=== PATIENT | male | born 1960 | race Caucasian/White ===

== ENCOUNTER 2017-03-10 19:12 | Emergency (ER) | payer BC ==
[2017-03-10 19:29] VITALS: BMI 28.2
[2017-03-10 19:33] VITALS: TEMP 97.9; O2SAT 98
[2017-03-10] MEDS ORDERED: TDAP Vaccine 0.5 mL Syr IM ONE (19:52)
[2017-03-10] MEDS ORDERED: Amoxicillin-Clav 875-125 mg Tab PO STA (19:52)
--- NOTE | 2017-03-10 19:54 | ED PDOC ---
Arrival/HPI <Thomas Gonzalez - Last Filed: 03/10/17 20:19> - General Historian: Patient - History of Present Illness Time/Duration: Prior to Arrival Symptom Onset: Sudden Symptom Course: Unchanged Quality: Aching Severity Level: 1 <Ewelina Upton - Last Filed: 03/11/17 14:27> - General Chief Complaint: Abnormal Skin Integrity Time Seen by Provider: 03/10/17 19:39 - History of Present Illness Narrative History of Present Illness (Text): 03/10/17 19:51 56-year-old male presents today with a laceration to the right cheek. Patient states he was opening a cabinet with glass doors and the glass broke and a piece of glass hit into his cheek. Patient states he removed a large piece of glass from his right cheek. Patient complaining of minimal pain. Patient unsure of his last tetanus shot. Incident occurred prior to arrival. No medications have been taken at home. Patient denies foreign body sensation. (Ewelina Upton) Past Medical History - Provider Review Nursing Documentation Reviewed: Yes - Travel History Have you recently traveled outside [place] w/in the past 3 mons?: No - Infectious Disease Hx of Infectious Diseases: None - Tetanus Immunization Tetanus Immunization: Unknown - Psychiatric Hx Substance Use: No - Anesthesia Hx Anesthesia: No <Ewelina Upton - Last Filed: 03/11/17 14:27> Family/Social History - Physician Review Nursing Documentation Reviewed: Yes Family/Social History: Unknown Family HX Smoking Status: Never Smoked Hx Alcohol Use: Yes Frequency of alcohol use: Socially Hx Substance Use: No <Ewelina Upton - Last Filed: 03/11/17 14:27> Allergies/Home Meds <Thomas Gonzalez - Last Filed: 03/10/17 20:19> <Ewelina Upton - Last Filed: 03/11/17 14:27> Allergies/Adverse Reactions: Allergies No Known Allergies Allergy (Verified 03/10/17 19:29) Home Medications: Home Meds Medication Instructions Recorded Confirmed Aspirin [Adult Low Dose Aspirin EC] 1 tab PO DAILY 03/10/17 03/10/17 Review of Systems - Review of Systems Constitutional: absent: Fatigue, Fevers ENT: absent: Sore Throat, Sinus Congestion Respiratory: absent: SOB, Cough Cardiovascular: absent: Chest Pain Gastrointestinal: absent: Abdominal Pain, Vomiting Musculoskeletal: absent: Arthralgias, Back Pain, Neck Pain Skin: Laceration Neurological: absent: Headache, Dizziness <Ewelina Upton - Last Filed: 03/11/17 14:27> Physical Exam Vital Signs Reviewed: Yes Temperature: Afebrile Blood Pressure: Hypertensive Pulse: Regular Respiratory Rate: Normal Appearance: Positive for: Well-Appearing, Non-Toxic, Comfortable Pain Distress: None Mental Status: Positive for: Alert and Oriented X 3 - Systems Exam Head: Present: Laceration (there is a 2cm linear laceration to right cheek. no active bleeding. no palpable or visualized FB. ) Mouth: Present: Moist Mucous Membranes, Normal Tounge, Normal Teeth, Other ( there is a small puncture wound noted to the mucosa of the right cheek.). No: Drooling, Trismus Nose (External): Present: Atraumatic Neck: Present: Normal Range of Motion Respiratory/Chest: Present: Clear to Auscultation, Good Air Exchange. No: Respiratory Distress, Accessory Muscle Use Cardiovascular: Present: Regular Rate and Rhythm, Normal S1, S2. No: Murmurs Neurological: Present: GCS=15 Skin: Present: Warm, Dry Psychiatric: Present: Alert, Oriented x 3 <Ewelina Upton - Last Filed: 03/11/17 14:27> Vital Signs Temp Pulse Resp BP Pulse Ox 03/10/17 20:58 54 L 16 161/92 H 98 03/10/17 19:32 97.9 F 53 L 18 150/93 H 98 Medical Decision Making <Thomas Gonzalez - Last Filed: 03/10/17 20:19> <Ewelina Upton - Last Filed: 03/11/17 14:27> ED Course and Treatment: 03/10/17 19:56 Patient is nontoxic well appearing in no distress. Vital signs are stable. pt with laceration to right side of cheek with small puncture on mucosa of right cheek; (through and through laceration) Wound irrigated well with high pressure irrigation Tetanus updated augmentin given PO Laceration repair: 4 sutures placed Bacitracin and dressing applied Patient was advised to keep the wound clean and dry, apply bacitracin twice daily.advised to take abx as prescribed. Advised to return immediately if signs of infection develop or return if any other concerning symptoms develop Patient verbalizes understanding of discharge instructions and need for immediate followup. all aspects of this case were discussed the attending of record. Impression: Laceration, face Motrin every 6 hours as needed for pain Augmentin; 1 tablet twice daily x 7 days. Keep the wound clean and dry, apply bacitracin twice daily Return in 5 days for suture removal Return immediately if signs of infection develop: High fevers, increasing pain, redness, swelling, purulent discharge Follow up with the Plastic surgeon within the next 2 days. Followup with primary care physician within the next 2 days Return if any other concerning symptoms develop (Ewelina Upton) - Medication Orders Current Medication Orders: Discontinued Medications Amoxicillin/Clavulanate Potassium (Augmentin 875 Mg-125 Mg Tab) 1 tab PO STAT STA PRN Reason: Protocol Stop: 03/10/17 19:53 Last Admin: 03/10/17 20:01 Dose: 1 tab Lidocaine HCl (Lidocaine 1% (20ml)) Confirm Administered Dose 20 ml .ROUTE .K- MED ONE Stop: 03/10/17 20:05 Tetanus/Reduced Diphtheria/Acell Pertussis (Boostrix Vaccine Inj) 0.5 ml IM .ONCE ONE Stop: 03/10/17 19:53 Last Admin: 03/10/17 20:01 Dose: 0.5 ml Procedure: Wound Repair - Procedure Procedure: Wound Repair: laceration - Consent Obtained Consent obtained: Verbal - Performed by Performed by: Mid-level Provider - Location Location:: Right, Cheek Shape:: Linear Dimensions Length cm: 2cm - Anesthetic Technique Anesthetic Technique: Local Local/Regional Anesthetic:: Lidocaine 1% (1cc) - Debris Debris:: None - Irrigated Irrigated with ml of normal saline: copious amounts of NS using high pressure irrigation - Complexity Complexity:: Simple (one layer) - Wound repair method Sutures:: # (4), Size (6.0), Type (prolene), Technique (interrupted) - Complications Complications: NONE - Patient tolerated procedure Patient Tolerated Procedure:: Well <Ewelina Upton - Last Filed: 03/11/17 14:27> - PA / [employer] / Resident Statement / has reviewed & agrees with the documentation as recorded. SHELBY has examined the patient and agrees with the treatment plan. <Thomas Gonzalez - Last Filed: 03/10/17 20:19> Disposition/Present on Arrival <Thomas Gonzalez - Last Filed: 03/10/17 20:19> - Present on Arrival Any Indicators Present on Arrival: No History of DVT/PE: No History of Uncontrolled Diabetes: No Urinary Catheter: No History of Decub. Ulcer: No History Surgical Site Infection Following: None - Disposition Have Diagnosis and Disposition been Completed?: Yes Disposition Time: 19:58 Patient Plan: Discharge <Ewelina Upton - Last Filed: 03/11/17 14:27> - Disposition Diagnosis: Laceration of face Disposition: HOME/ ROUTINE Condition: GOOD Discharge Instructions (ExitCare): Care For Your Stitches (ED), Laceration (ED) Additional Instructions: Motrin every 6 hours as needed for pain Augmentin; 1 tablet twice daily x 7 days. Keep the wound clean and dry, apply bacitracin twice daily Return in 5 days for suture removal Return immediately if signs of infection develop: High fevers, increasing pain, redness, swelling, purulent discharge Follow up with the Plastic surgeon within the next 2 days. Followup with primary care physician within the next 2 days Return if any other concerning symptoms develop Prescriptions: Amoxicillin/Clavulanate [Augmentin 875 MG-125 MG] 1 tab PO BID #14 tab Referrals: Jj Hackett MD [Staff Provider] - Follow up with primary Joslyn Lee MD [Non-Staff] - Follow up with primary Forms: [employer] [facility] (Vietnamese), WORK NOTE
[2017-03-10] MEDS ORDERED: Lidocaine 1% Inj (20ml) ONE (20:04)
[2017-03-10 21:01] VITALS: BP 161/92; PULSE 54; RESP 16
== END 2017-03-10 21:01 | disposition home or self-care (01) ==
LOC: ED 19:12
DX: S01.411A Laceration without foreign body of right cheek and temporomandibular area, initial encounter (principal); W25.XXXA Contact with sharp glass, initial encounter; Y93.89 Activity, other specified; Y92.9 Unspecified place or not applicable; Z23 Encounter for immunization

== ENCOUNTER 2017-03-15 07:52 | Emergency (ER) | payer BC ==
[2017-03-15 08:01] VITALS: BP 138/82; PULSE 56; RESP 16; TEMP 97.9; O2SAT 98; BMI 27.3
--- NOTE | 2017-03-15 08:15 | ED PDOC ---
Arrival/HPI - General Chief Complaint: Suture/Staple Removal Time Seen by Provider: 03/15/17 08:12 Historian: Patient - History of Present Illness Narrative History of Present Illness (Text): 03/15/17 08:08 Jenny Miller is a 56 year old male who presents to the emergency department for suture removal s/p laceration repair five days ago. Patient states that a piece of a mirror fell on his face five days ago, prompting patient to come to the emergency department for evaluation. Patient received 4 stitches as well as a tetanus shot. Patient denies any pus, fever, or any other complaint at this time. PMD: Dr. Hernandez Time/Duration: < week Symptom Onset: Sudden Symptom Course: Resolved Severity Level: Mild Activities at Onset: Light Context: Home Past Medical History - Provider Review Nursing Documentation Reviewed: Yes - Infectious Disease Hx of Infectious Diseases: None - Tetanus Immunization Tetanus Immunization: Unknown - Psychiatric Hx Substance Use: No - Anesthesia Hx Anesthesia: No Family/Social History - Physician Review Nursing Documentation Reviewed: Yes Family/Social History: No Known Family HX Smoking Status: Never Smoked Hx Alcohol Use: Yes Hx Substance Use: No Allergies/Home Meds Allergies/Adverse Reactions: Allergies No Known Allergies Allergy (Verified 03/10/17 19:29) Home Medications: Home Meds Medication Instructions Recorded Confirmed Aspirin [Adult Low Dose Aspirin EC] 1 tab PO DAILY 03/10/17 03/15/17 Review of Systems - Physician Review All systems were reviewed & negative as marked: Yes - Review of Systems Constitutional: absent: Fevers, Night Sweats Eyes: absent: Vision Changes ENT: absent: Hearing Changes Respiratory: absent: SOB, Cough Cardiovascular: absent: Chest Pain Gastrointestinal: absent: Abdominal Pain Genitourinary Male: absent: Dysuria Musculoskeletal: absent: Arthralgias Skin: Other (Suture removal from right cheek) Neurological: absent: Headache, Dizziness Endocrine: absent: Diaphoresis Hemo/Lymphatic: absent: Adenopathy Psychiatric: absent: Anxiety Physical Exam Vital Signs Reviewed: Yes Vital Signs Temp Pulse Resp BP Pulse Ox 03/15/17 08:00 97.9 F 56 L 16 138/82 98 Temperature: Afebrile Blood Pressure: Normal Pulse: Bradycardic Respiratory Rate: Normal Appearance: Positive for: Well-Appearing, Non-Toxic, Comfortable Pain Distress: None Mental Status: Positive for: Alert and Oriented X 3 - Systems Exam Mouth: Present: Other (healing laceration to right cheek, no erythema, no swelling, no pus; interior cheek normal) Medical Decision Making ED Course and Treatment: 03/15/17 08:08 Impression: 56 year old male presents to the emergency department with suture removal s/p laceration repair 5 days ago. Differential Diagnosis included but are not limited to: Suture Removal Plan: -- Reassess and disposition Prior Visits: Notes and results from previous visits were reviewed. Patient last seen in the ED on 03/10/17 for a laceration to the right cheek. Patient was discharged home. Progress Notes: 03/15/17 08:30 PROCEDURE: SUTURE REMOVAL Performed by the emergency provider Location: Right Cheek Distal CMS: Normal. No deficits. Neurovascularly intact. Preparation: The wound was cleaned with NS and [place]. The area was prepped and draped in the usual sterile fashion. Procedure: In total, 4 sutures were removed. Post-Procedure: Good closure and hemostasis. The patient tolerated the procedure well and there were no complications. CSM remains intact. Disposition/Present on Arrival - Present on Arrival Any Indicators Present on Arrival: No History of DVT/PE: No History of Uncontrolled Diabetes: No Urinary Catheter: No History of Decub. Ulcer: No History Surgical Site Infection Following: None - Disposition Have Diagnosis and Disposition been Completed?: Yes Diagnosis: Visit for suture removal Disposition: HOME/ ROUTINE Disposition Time: 08:38 Patient Plan: Discharge Condition: IMPROVED Discharge Instructions (ExitCare): Stitches Removal (ED) Additional Instructions: Mr Miller, thank you for letting us take care of you today. Your provider was Dr. Bain. You were treated for Suture Removal. The emergency medical care you received today was directed at your acute symptoms. If you were prescribed any medication, please fill it and take as directed. It may take several days for your symptoms to resolve. Return to the Emergency Department if your symptoms worsen, do not improve, or if you have any other problems. Please contact your doctor or call one of the physicians/clinics you have been referred to that are listed on the Patient Visit Information form that is included in your discharge packet. Bring any paperwork you were given at discharge with you along with any medications you are taking to your follow up visit. Our treatment cannot replace ongoing medical care by a primary care provider (PCP) outside of the emergency department. Thank you for allowing the [facility] team to be part of your care today. If you had an X-Ray or CT scan: A Radiologist will review the ED reading if any change in treatment is needed we will contact you. If you had a blood, urine, or wound culture: It will take several days for the results, if any change in treatment is needed we will contact you. If you had an STI test: It will take 48 hours for the results. Please call after 1 week if you have not heard back. Referrals: Gilbert Hernandez MD [Primary Care Provider] - Follow up with primary Forms: [employer] (Greenlandic)
== END 2017-03-15 08:39 | disposition home or self-care (01) ==
LOC: ED 07:52
DX: Z48.02 Encounter for removal of sutures (principal)